=== PATIENT | male | born 1990 | race Caucasian/White ===

== ENCOUNTER 2017-08-09 05:29 | Inpatient (IN) | payer MEDICAID ==
[~2017-08-09] VITALS: Ht 167.6 cm; Wt 76.0 kg
[~2017-08-09 05:29] MED LIST: BENZ2TAB10 PO; RISP2TAB76 PO
[2017-08-09] MEDS ORDERED: QUEtiapine FUMARATE 100 MG TABLET PO PRN (07:45)
[2017-08-09 09:37] VITALS: BP 123/76
[2017-08-09] MEDS: LORazepam 1 MG TABLET PO PRN ×2 (14:00→16:41)
[2017-08-09] MEDS ORDERED: ALBUTEROL SULFATE HFA 90 MCG/PUFF 8 GM INHALER IH PRN (18:00)
[2017-08-09] MEDS ORDERED: BACITRACIN 28.4 GM OINTMENT TP PRN (18:00)
[2017-08-09] MEDS ORDERED: PETROLATUM,WHITE 71 GM JELLY TP PRN (18:00)
[2017-08-09] MEDS ORDERED: CloNIDine HCL 0.1 MG TABLET PO PRN (18:00)
[2017-08-09] MEDS ORDERED: MAGNESIUM HYDROXIDE SUSPENSION 30 ML UDCUP PO PRN (18:00)
[2017-08-09] MEDS ORDERED: MAG HYDROX/AL HYDROX/SIMETH ES 30 ML SUSPENSION UDCUP PO PRN (18:00)
[2017-08-09] MEDS ORDERED: LOPERAMIDE HCL 2 MG CAPSULE PO PRN (18:00)
[2017-08-09] MEDS ORDERED: ONDANSETRON HCL 4 MG TABLET PO PRN (18:00)
[2017-08-09] MEDS ORDERED: IBUPROFEN 600 MG TABLET PO PRN (18:00)
[2017-08-09] MEDS ORDERED: BENZOCAINE/MENTHOL LOZENGE MM PRN (18:00)
[2017-08-09] MEDS ORDERED: ACETAMINOPHEN 325 MG TABLET PO PRN (18:00)
[2017-08-09 18:45] VITALS: BP 130/99
[2017-08-09] MEDS: ARIPiprazole 10 MG TABLET PO SCH (20:58)
[2017-08-09] MEDS: CITALOPRAM HYDROBROMIDE 20 MG TABLET PO SCH (20:58)
[2017-08-09] MEDS ORDERED: BENZTROPINE MESYLATE 2 MG TABLET PO SCH (21:00)
[2017-08-09] MEDS ORDERED: RisperiDONE 2 MG TABLET PO SCH (21:00)
[2017-08-10 01:36] VITALS: BP 118/63
[2017-08-10 08:06] LABS: BASOPHILS # (AUTO) 0.04 K/uL (0.00-0.20); BASOPHILS % (AUTO) 0.3 % (0.0-2.0); EOSINOPHILS % (AUTO) 2.09 % (1.0-6.0); HEMATOCRIT 51.3 % (41-53); HEMOGLOBIN 17.7 g/dL (13.5-17.5); LYMPHOCYTES % (AUTO) 13.6 % (22.0-44.0); MEAN CORPUSCULAR HEMOGLOBIN 30.9 pg (26.0-34.0); MEAN CORPUSCULAR HGB CONC 34.4 G/dL (31.0-37.0); MEAN CORPUSCULAR VOLUME 90 fL (80-100); MONOCYTES % (AUTO) 6.7 % (2.0-9.0); NEUTROPHILS # (AUTO) 11.2 K/uL (1.8-7.7); NEUTROPHILS % (AUTO) 77.4 % (40.0-70.0); PLATELET COUNT (AUTO) 247 K/uL (150-450); RED BLOOD CELL COUNT(AUTO) 5.71 MIL/uL (4.50-5.90); RED CELL DISTRIBUTION WIDTH 12.9 % (11.5-14.5); WHITE BLOOD COUNT (AUTO) 14.5 K/uL (4.5-11.0)
[2017-08-10 08:38] VITALS: BP 127/75
[2017-08-10 08:58] LABS: ALANINE AMINOTRANSFERASE 29 U/L (12-78); ALBUMIN 4.2 g/dL (3.4-5.0); ANION GAP 13 mmol/L (8-16); ASPARTATE AMINOTRANSFERASE 20 U/L (15-37); BILIRUBIN,TOTAL 0.7 mg/dL (0.1-1.0); CALCIUM, TOTAL 9.3 mg/dL (8.8-10.5); CARBON DIOXIDE 25 mmol/L (22-29); CHLORIDE 105 mmol/L (98-107); CHOL/HDL RATIO 4.1 (4.2-7.3); CREATININE 0.92 mg/dL (0.60-1.30); GLOMERULAR FILTR. RATE CALC > 60 mL/min (>60); POTASSIUM 3.6 mmol/L (3.5-5.1); SODIUM SERUM 143 mmol/L (136-145); THYROID STIMULATING HORMONE 0.74 uIU/mL (0.36-3.74); TOTAL PROTEIN, SERUM 7.7 g/dL (6.4-8.2); UREA NITROGEN, BLOOD 16 mg/dL (7-18)
[2017-08-10 16:48] VITALS: BP 115/86
[2017-08-10] MEDS: LORazepam 1 MG TABLET PO PRN (17:12)
[2017-08-10] MEDS: CITALOPRAM HYDROBROMIDE 20 MG TABLET PO SCH (20:27)
[2017-08-10] MEDS: ARIPiprazole 10 MG TABLET PO SCH (20:27)
[2017-08-11 06:30] VITALS: BP 128/75
[2017-08-11] MEDS: LORazepam 1 MG TABLET PO PRN (08:35)
[2017-08-11 09:51] VITALS: BP 130/43
[2017-08-11 16:42] VITALS: BP 125/88
[2017-08-11] MEDS: ARIPiprazole 10 MG TABLET PO SCH (20:20)
[2017-08-11] MEDS: CITALOPRAM HYDROBROMIDE 20 MG TABLET PO SCH (20:20)
[2017-08-12 05:27] VITALS: BP 120/69
[2017-08-12 09:15] VITALS: BP 104/68
[2017-08-12] MEDS: LORazepam 1 MG TABLET PO PRN ×2 (11:12→20:35)
[2017-08-12 16:49] VITALS: BP 133/74
[2017-08-12] MEDS: CITALOPRAM HYDROBROMIDE 20 MG TABLET PO SCH (20:35)
[2017-08-12] MEDS: ARIPiprazole 10 MG TABLET PO SCH (21:23)
[2017-08-13 06:24] VITALS: BP 105/75
[2017-08-13 06:54] LABS: BASOPHILS % (AUTO) 0.6 % (0.0-2.0); EOSINOPHILS % (AUTO) 6.1 % (1.0-6.0); HEMATOCRIT 46.7 % (41-53); HEMOGLOBIN 16.1 g/dL (13.5-17.5); LYMPHOCYTES # (AUTO) 2.2 K/uL (1.0-4.8); LYMPHOCYTES % (AUTO) 24.4 % (22.0-44.0); MEAN CORPUSCULAR HGB CONC 34.5 G/dL (31.0-37.0); MEAN CORPUSCULAR VOLUME 90 fL (80-100); MONOCYTES # (AUTO) 0.7 K/uL (0.1-1.0); MONOCYTES % (AUTO) 7.9 % (2.0-9.0); NEUTROPHILS # (AUTO) 5.5 K/uL (1.8-7.7); PLATELET COUNT (AUTO) 234 K/uL (150-450); RED CELL DISTRIBUTION WIDTH 12.5 % (11.5-14.5)
[2017-08-13 07:22] LABS: ANION GAP 9 mmol/L (8-16); CALCIUM, TOTAL 8.6 mg/dL (8.8-10.5); CARBON DIOXIDE 26 mmol/L (22-29); CHLORIDE 106 mmol/L (98-107); CREATININE 0.84 mg/dL (0.60-1.30); GLOMERULAR FILTR. RATE CALC > 60 mL/min (>60); PHOSPHORUS 3.6 mg/dL (2.5-4.9); POTASSIUM 4.3 mmol/L (3.5-5.1); SODIUM SERUM 141 mmol/L (136-145); UREA NITROGEN, BLOOD 13 mg/dL (7-18)
[2017-08-13] MEDS: LORazepam 1 MG TABLET PO PRN ×2 (09:53→17:20)
[2017-08-13 10:02] VITALS: BP 116/60
[2017-08-13 16:41] VITALS: BP 135/78
[2017-08-13] MEDS: ARIPiprazole 10 MG TABLET PO SCH (20:13)
[2017-08-13] MEDS: CITALOPRAM HYDROBROMIDE 20 MG TABLET PO SCH (20:13)
[2017-08-14 06:57] VITALS: BP 128/79
[2017-08-14] MEDS: LORazepam 1 MG TABLET PO PRN (10:10)
[2017-08-14] MEDS ORDERED: ARIP15TA2 PO (12:56)
[2017-08-14] MEDS ORDERED: CITA20TA17 PO (12:56)
== END 2017-08-14 15:00 | disposition home or self-care (01) | DRG 750 ==
LOC: BV PSY EVL 08:52 → AHU 09:20 → B2S 17:36
DX: F25.1 Schizoaffective disorder, depressive type (principal); R45.851 Suicidal ideations; F15.10 Other stimulant abuse, uncomplicated; F17.210 Nicotine dependence, cigarettes, uncomplicated; G47.00 Insomnia, unspecified; K59.00 Constipation, unspecified; Z79.899 Other long term (current) drug therapy; Z88.0 Allergy status to penicillin; Z72.89 Other problems related to lifestyle
CPT/HCPCS: 83735; 84100; 84436; 84439; 84443; 99285

== ENCOUNTER 2017-09-05 22:12 | Inpatient (IN) | payer MEDICAID, OTHER ==
[~2017-09-05] VITALS: Ht 160 cm; Wt 82.1 kg
[~2017-09-05 22:12] MED LIST changes: +ARIP15TA2 PO; -BENZ2TAB10 PO; +CITA20TA17 PO; -RISP2TAB76 PO
[2017-09-05] MEDS ORDERED: HALOPERIDOL 5 MG TABLET PO PRN (22:45)
[2017-09-05 22:57] VITALS: BP 132/78
[2017-09-06 00:50] LABS: BASOPHILS % (AUTO) 0.3 % (0.0-2.0); EOSINOPHILS % (AUTO) 1.7 % (1.0-6.0); HEMATOCRIT 52.3 % (41-53); HEMOGLOBIN 17.7 g/dL (13.5-17.5); LYMPHOCYTES # (AUTO) 2.2 K/uL (1.0-4.8); MEAN CORPUSCULAR HEMOGLOBIN 30.5 pg (26.0-34.0); MEAN CORPUSCULAR HGB CONC 33.9 G/dL (31.0-37.0); MEAN CORPUSCULAR VOLUME 90 fL (80-100); MONOCYTES # (AUTO) 1.2 K/uL (0.1-1.0); NEUTROPHILS # (AUTO) 13.1 K/uL (1.8-7.7); PLATELET COUNT (AUTO) 280 K/uL (150-450); RED BLOOD CELL COUNT(AUTO) 5.81 MIL/uL (4.50-5.90); RED CELL DISTRIBUTION WIDTH 13.4 % (11.5-14.5); WHITE BLOOD COUNT (AUTO) 16.8 K/uL (4.5-11.0)
[2017-09-06 00:56] LABS: ANION GAP 10 mmol/L (8-16); CALCIUM, TOTAL 9.2 mg/dL (8.8-10.5); CARBON DIOXIDE 25 mmol/L (22-29); CHLORIDE 103 mmol/L (98-107); CREATININE 0.92 mg/dL (0.60-1.30); GLOMERULAR FILTR. RATE CALC > 60 mL/min (>60); POTASSIUM 3.7 mmol/L (3.5-5.1); SODIUM SERUM 138 mmol/L (136-145); UREA NITROGEN, BLOOD 15 mg/dL (7-18)
[2017-09-06 01:02] LABS: ALANINE AMINOTRANSFERASE 39 U/L (12-78); ALBUMIN 4.5 g/dL (3.4-5.0); ASPARTATE AMINOTRANSFERASE 19 U/L (15-37); BILIRUBIN,TOTAL 0.7 mg/dL (0.1-1.0)
[2017-09-06] MEDS ORDERED: LORazepam 2 MG TABLET PO ONE (01:30)
[2017-09-06] MEDS ORDERED: INFLUENZA VIRUS VACCINE QVS 2017-18 (3YR+)/PF 60 MCG/0.5 ML SYRINGE IM ONE (04:15)
[2017-09-06 06:29] LABS: BASOPHILS % (AUTO) 0.3 % (0.0-2.0); EOSINOPHILS % (AUTO) 2.7 % (1.0-6.0); HEMATOCRIT 47.8 % (41-53); HEMOGLOBIN 16.6 g/dL (13.5-17.5); LYMPHOCYTES # (AUTO) 2.5 K/uL (1.0-4.8); LYMPHOCYTES % (AUTO) 19.3 % (22.0-44.0); MEAN CORPUSCULAR HEMOGLOBIN 31.4 pg (26.0-34.0); MEAN CORPUSCULAR HGB CONC 34.7 G/dL (31.0-37.0); MEAN CORPUSCULAR VOLUME 90 fL (80-100); MONOCYTES # (AUTO) 1.1 K/uL (0.1-1.0); MONOCYTES % (AUTO) 8.4 % (2.0-9.0); NEUTROPHILS % (AUTO) 69.3 % (40.0-70.0); PLATELET COUNT (AUTO) 246 K/uL (150-450); RED BLOOD CELL COUNT(AUTO) 5.29 MIL/uL (4.50-5.90); RED CELL DISTRIBUTION WIDTH 13.5 % (11.5-14.5)
[2017-09-06 06:38] LABS: ALANINE AMINOTRANSFERASE 32 U/L (12-78); ALBUMIN 3.8 g/dL (3.4-5.0); ANION GAP 10 mmol/L (8-16); ASPARTATE AMINOTRANSFERASE 12 U/L (15-37); BILIRUBIN,TOTAL 0.8 mg/dL (0.1-1.0); CALCIUM, TOTAL 8.6 mg/dL (8.8-10.5); CARBON DIOXIDE 26 mmol/L (22-29); CHLORIDE 105 mmol/L (98-107); CHOL/HDL RATIO 4.2 (4.2-7.3); CREATININE 0.81 mg/dL (0.60-1.30); GLOMERULAR FILTR. RATE CALC > 60 mL/min (>60); POTASSIUM 3.6 mmol/L (3.5-5.1); SODIUM SERUM 141 mmol/L (136-145); THYROID STIMULATING HORMONE 1.34 uIU/mL (0.36-3.74); UREA NITROGEN, BLOOD 15 mg/dL (7-18)
[2017-09-06 09:38] VITALS: BP 127/72
[2017-09-06 09:44] VITALS: BP 127/72
[2017-09-06 16:59] VITALS: BP 124/67
[2017-09-06 17:00] VITALS: BP 124/67
[2017-09-06] MEDS ORDERED: ALBUTEROL SULFATE HFA 90 MCG/PUFF 8 GM INHALER IH PRN (18:45)
[2017-09-06] MEDS ORDERED: BENZOCAINE/MENTHOL LOZENGE [8 LOZENGES/PACKET] MM PRN (18:45)
[2017-09-06] MEDS ORDERED: LOPERAMIDE HCL 2 MG CAPSULE PO PRN (18:45)
[2017-09-06] MEDS ORDERED: MAGNESIUM HYDROXIDE SUSPENSION 30 ML UDCUP PO PRN (18:45)
[2017-09-06] MEDS ORDERED: IBUPROFEN 600 MG TABLET PO PRN (18:45)
[2017-09-06] MEDS ORDERED: ONDANSETRON HCL 4 MG TABLET PO PRN (18:45)
[2017-09-06] MEDS ORDERED: ACETAMINOPHEN 325 MG TABLET PO PRN (18:45)
[2017-09-06] MEDS ORDERED: BACITRACIN 28.4 GM OINTMENT TP PRN (18:45)
[2017-09-06] MEDS ORDERED: MAG HYDROX/AL HYDROX/SIMETH ES 30 ML SUSPENSION UDCUP PO PRN (18:45)
[2017-09-06] MEDS ORDERED: CloNIDine HCL 0.1 MG TABLET PO PRN (18:45)
[2017-09-06] MEDS ORDERED: PETROLATUM,WHITE 71 GM JELLY TP PRN (18:45)
[2017-09-06 19:34] VITALS: BP 135/64
[2017-09-06] MEDS: ZOLPIDEM TARTRATE 10 MG TABLET PO PRN (20:15)
[2017-09-06] MEDS: LORazepam 2 MG TABLET PO PRN (20:15)
[2017-09-06] MEDS: ARIPiprazole 10 MG TABLET PO SCH (21:00)
[2017-09-06] MEDS: CITALOPRAM HYDROBROMIDE 20 MG TABLET PO SCH (21:00)
[2017-09-07 00:01] VITALS: BP 125/76
[2017-09-07 09:00] VITALS: BP 112/76
[2017-09-07] MEDS: NICOTINE 21 MG/24 HOUR PATCH TD SCH (09:25)
[2017-09-07] MEDS: LORazepam 2 MG TABLET PO PRN (15:03)
[2017-09-07 16:20] VITALS: BP 132/76
[2017-09-07] MEDS: ZOLPIDEM TARTRATE 10 MG TABLET PO PRN (20:28)
[2017-09-07] MEDS: ARIPiprazole 10 MG TABLET PO SCH (20:28)
[2017-09-07] MEDS: CITALOPRAM HYDROBROMIDE 20 MG TABLET PO SCH (20:28)
[2017-09-08 01:22] VITALS: BP 123/61
[2017-09-08] MEDS: NICOTINE 21 MG/24 HOUR PATCH TD SCH (09:03)
[2017-09-08 09:06] VITALS: BP 141/91
[2017-09-08] MEDS: LORazepam 2 MG TABLET PO PRN ×2 (09:13→20:07)
[2017-09-08 16:06] VITALS: BP 136/80
[2017-09-08] MEDS: ARIPiprazole 10 MG TABLET PO SCH (20:07)
[2017-09-08] MEDS: CITALOPRAM HYDROBROMIDE 20 MG TABLET PO SCH (20:07)
[2017-09-09 00:01] VITALS: BP 123/73
[2017-09-09 07:24] LABS: BASOPHILS # (AUTO) 0.05 K/uL (0.00-0.20); BASOPHILS % (AUTO) 0.6 % (0.0-2.0); EOSINOPHILS # (AUTO) 0.48 K/uL (0.00-0.70); EOSINOPHILS % (AUTO) 5.34 % (1.0-6.0); HEMATOCRIT 48.5 % (41-53); HEMOGLOBIN 16.4 g/dL (13.5-17.5); LYMPHOCYTES # (AUTO) 2.1 K/uL (1.0-4.8); LYMPHOCYTES % (AUTO) 22.9 % (22.0-44.0); MEAN CORPUSCULAR HEMOGLOBIN 30.8 pg (26.0-34.0); MEAN CORPUSCULAR HGB CONC 33.7 G/dL (31.0-37.0); MEAN CORPUSCULAR VOLUME 91 fL (80-100); MONOCYTES # (AUTO) 0.8 K/uL (0.1-1.0); MONOCYTES % (AUTO) 8.8 % (2.0-9.0); NEUTROPHILS # (AUTO) 5.7 K/uL (1.8-7.7); NEUTROPHILS % (AUTO) 62.4 % (40.0-70.0); PLATELET COUNT (AUTO) 212 K/uL (150-450); RED BLOOD CELL COUNT(AUTO) 5.31 MIL/uL (4.50-5.90); RED CELL DISTRIBUTION WIDTH 12.7 % (11.5-14.5); WHITE BLOOD COUNT (AUTO) 9.1 K/uL (4.5-11.0)
[2017-09-09 08:35] VITALS: BP 146/66
[2017-09-09] MEDS: LORazepam 2 MG TABLET PO PRN (08:56)
[2017-09-09] MEDS: NICOTINE 21 MG/24 HOUR PATCH TD SCH (08:56)
[2017-12-12] MEDS ORDERED: ARIP10TA8 PO (14:20)
[2017-12-15] MEDS ORDERED: VITAD1000 PO (09:54)
[2017-12-15] MEDS ORDERED: ATEN25TA PO (09:54)
[2017-12-17] MEDS ORDERED: ARIP5TAB8 PO (14:04)
== END 2017-09-09 13:10 | disposition home or self-care (01) | DRG 750 ==
LOC: EMS 23:41 → AHU 09-06 02:26 → B2S 09-06 21:58
DX: F25.1 Schizoaffective disorder, depressive type (principal); R45.851 Suicidal ideations; F15.10 Other stimulant abuse, uncomplicated; D72.829 Elevated white blood cell count, unspecified; F41.9 Anxiety disorder, unspecified; G47.00 Insomnia, unspecified; G80.9 Cerebral palsy, unspecified; K59.00 Constipation, unspecified; F17.210 Nicotine dependence, cigarettes, uncomplicated; Z79.899 Other long term (current) drug therapy; Z88.0 Allergy status to penicillin; Z71.6 Tobacco abuse counseling
CPT/HCPCS: 82306; 83036; 84439; 84443; 87081; 99285; G0480

== ENCOUNTER 2017-12-26 03:07 | Emergency (ER) | payer MEDICAID, OTHER ==
[~2017-12-26] VITALS: Ht 160 cm; Wt 67.3 kg
[~2017-12-26 03:07] MED LIST changes: -ARIP15TA2 PO; +ARIP5TAB8 PO; +ATEN25TA PO; +VITAD1000 PO
[2017-12-26 04:14] LABS: BASOPHILS % (AUTO) 0.7 % (0.0-2.0); EOSINOPHILS % (AUTO) 0.1 % (1.0-6.0); HEMOGLOBIN 17.4 g/dL (13.5-17.5); LYMPHOCYTES # (AUTO) 1.9 K/uL (1.0-4.8); LYMPHOCYTES % (AUTO) 8.6 % (22.0-44.0); MEAN CORPUSCULAR HGB CONC 34.1 G/dL (31.0-37.0); MEAN CORPUSCULAR VOLUME 88 fL (80-100); MONOCYTES # (AUTO) 1.1 K/uL (0.1-1.0); MONOCYTES % (AUTO) 4.8 % (2.0-9.0); NEUTROPHILS # (AUTO) 18.8 K/uL (1.8-7.7); PLATELET COUNT (AUTO) 311 K/uL (150-450)
[2017-12-26] MEDS ORDERED: LORazepam 1 MG TABLET PO ONE (04:15)
[2017-12-26] MEDS ORDERED: HALOPERIDOL 5 MG TABLET PO ONE (04:15)
[2017-12-26] MEDS ORDERED: DiphenhydrAMINE HCL 25 MG/10 ML ELIXIR UDCUP PO ONE (04:15)
[2017-12-26 04:16] LABS: NEUTROPHILS % (AUTO) 85.8 % (40.0-70.0)
[2017-12-26 04:26] LABS: ANION GAP 13 mmol/L (8-16); CALCIUM, TOTAL 9.3 mg/dL (8.8-10.5); CARBON DIOXIDE 25 mmol/L (22-29); CHLORIDE 105 mmol/L (98-107); CREATININE 1.01 mg/dL (0.60-1.30); GLOMERULAR FILTR. RATE CALC > 60 mL/min (>60); GLUCOSE,RANDOM 141 mg/dL (70-110); POTASSIUM 3.8 mmol/L (3.5-5.1); SODIUM SERUM 143 mmol/L (136-145); UREA NITROGEN, BLOOD 12 mg/dL (7-18)
[2017-12-26 04:32] LABS: ALANINE AMINOTRANSFERASE 35 U/L (12-78); ALBUMIN 4.6 g/dL (3.4-5.0); ALKALINE PHOSPHATASE 88 U/L (46-116); ASPARTATE AMINOTRANSFERASE 16 U/L (15-37); BILIRUBIN,TOTAL 0.5 mg/dL (0.1-1.0); TOTAL PROTEIN, SERUM 8.5 g/dL (6.4-8.2)
[2017-12-26] MEDS ORDERED: SODIUM CHLORIDE 0.9% 1,000 ML IV ONE ×4 (06:00→12:00)
[2017-12-26] MEDS ORDERED: LORazepam 2 MG/ML VIAL IVP ONE ×2 (06:00→07:00)
[2017-12-26 07:03] LABS: LACTIC ACID 3.8 mmol/L (0.4-2.0)
[2017-12-26 07:51] LABS: AMPHET/METH SCREEN,URINE POSITIVE (NEGATIVE); BARBITURATE SCREEN, URINE NEGATIVE (NEGATIVE); BENZODIAZEPINES SCREEN,URINE NEGATIVE (NEGATIVE); CANNABINOID SCREEN,URINE NEGATIVE (NEGATIVE); COCAINE SCREEN,URINE NEGATIVE (NEGATIVE); METHADONE SCREEN, URINE NEGATIVE (NEGATIVE); OPIATE SCREEN,URINE NEGATIVE (NEGATIVE)
[2017-12-26 07:54] LABS: PHENCYCLIDINE SCREEN,URINE NEGATIVE (NEGATIVE)
[2017-12-26 12:07] VITALS: BP 160/80
== END 2017-12-26 13:25 | disposition home or self-care (01) ==
LOC: EMS 03:09
DX: F25.9 Schizoaffective disorder, unspecified (principal); F15.10 Other stimulant abuse, uncomplicated; F22 Delusional disorders; F17.210 Nicotine dependence, cigarettes, uncomplicated; F19.90 Other psychoactive substance use, unspecified, uncomplicated; I10 Essential (primary) hypertension; Z88.0 Allergy status to penicillin
CPT/HCPCS: 36415; 80053; 80307; 83605; 85025; 87040; 96361; 96374; 99285; G0480; J2060; J7030

== ENCOUNTER 2018-07-09 23:14 | Inpatient (IN) | payer MEDICAID, OTHER ==
[~2018-07-09] VITALS: Ht 160 cm; Wt 84.6 kg
[2018-07-10] MEDS ORDERED: TRAZ-219 PO (00:58)
[2018-07-10] MEDS ORDERED: PALI1.5T PO (00:58)
[2018-07-10 02:46] LABS: EOSINOPHILS % (AUTO) 0.8 % (1.0-6.0); HEMATOCRIT 43.9 % (41-53); LYMPHOCYTES # (AUTO) 2.1 K/uL (1.0-4.8); LYMPHOCYTES % (AUTO) 12.9 % (22.0-44.0); MEAN CORPUSCULAR HEMOGLOBIN 30.1 pg (26.0-34.0); MEAN CORPUSCULAR HGB CONC 34.2 G/dL (31.0-37.0); MEAN CORPUSCULAR VOLUME 88 fL (80-100); MONOCYTES # (AUTO) 1.3 K/uL (0.1-1.0); MONOCYTES % (AUTO) 7.7 % (2.0-9.0); NEUTROPHILS # (AUTO) 12.7 K/uL (1.8-7.7); NEUTROPHILS % (AUTO) 77.6 % (40.0-70.0); PLATELET COUNT (AUTO) 355 K/uL (150-450); RED BLOOD CELL COUNT(AUTO) 4.98 MIL/uL (4.50-5.90); RED CELL DISTRIBUTION WIDTH 13.1 % (11.5-14.5)
[2018-07-10 02:57] LABS: ANION GAP 9 mmol/L (8-16); CARBON DIOXIDE 25 mmol/L (22-29); CHLORIDE 105 mmol/L (98-107); CREATININE 0.82 mg/dL (0.60-1.30); GLOMERULAR FILTR. RATE CALC > 60 mL/min (>60); GLUCOSE,RANDOM 118 mg/dL (70-110); POTASSIUM 3.4 mmol/L (3.5-5.1); SODIUM SERUM 139 mmol/L (136-145); UREA NITROGEN, BLOOD 11 mg/dL (7-18)
[2018-07-10] MEDS ORDERED: ZOLPIDEM TARTRATE 10 MG TABLET PO PRN (03:00)
[2018-07-10] MEDS ORDERED: HALOPERIDOL 5 MG TABLET PO ONE (03:00)
[2018-07-10] MEDS ORDERED: LORazepam 2 MG TABLET PO ONE (03:00)
[2018-07-10] MEDS ORDERED: DiphenhydrAMINE HCL 25 MG CAPSULE PO ONE (03:00)
[2018-07-10] MEDS ORDERED: HALOPERIDOL 5 MG TABLET PO PRN (03:00)
[2018-07-10 03:03] LABS: ALANINE AMINOTRANSFERASE 49 U/L (12-78); ALBUMIN 3.5 g/dL (3.4-5.0); ALKALINE PHOSPHATASE 77 U/L (46-116); ASPARTATE AMINOTRANSFERASE 20 U/L (15-37); BILIRUBIN,TOTAL 0.5 mg/dL (0.1-1.0); TOTAL PROTEIN, SERUM 7.9 g/dL (6.4-8.2)
[2018-07-10] MEDS ORDERED: MUPIROCIN CALCIUM 2% 22 GM OINTMENT TP ONE (03:15)
[2018-07-10 06:53] LABS: AMPHET/METH SCREEN,URINE NEGATIVE (NEGATIVE); BARBITURATE SCREEN, URINE NEGATIVE (NEGATIVE); BENZODIAZEPINES SCREEN,URINE NEGATIVE (NEGATIVE); CANNABINOID SCREEN,URINE NEGATIVE (NEGATIVE); COCAINE SCREEN,URINE NEGATIVE (NEGATIVE); METHADONE SCREEN, URINE NEGATIVE (NEGATIVE); OPIATE SCREEN,URINE NEGATIVE (NEGATIVE)
[2018-07-10 06:55] LABS: PHENCYCLIDINE SCREEN,URINE NEGATIVE (NEGATIVE)
[2018-07-10] MEDS: LORazepam 2 MG TABLET PO PRN (09:36)
[2018-07-10 09:38] VITALS: BP 134/74
[2018-07-10] MEDS ORDERED: ACETAMINOPHEN 325 MG TABLET PO PRN (13:45)
[2018-07-10] MEDS ORDERED: MAGNESIUM HYDROXIDE SUSPENSION 30 ML UDCUP PO PRN (13:45)
[2018-07-10] MEDS ORDERED: HydrOXYzine PAMOATE 50 MG CAPSULE PO PRN (13:45)
[2018-07-10] MEDS ORDERED: TUBERCULIN, PURIFIED PROTEIN DERIVATIVE 5 TU/0.1 ML SYG ID ONE (13:45)
[2018-07-10] MEDS ORDERED: LOPERAMIDE HCL 2 MG CAPSULE PO PRN (13:45)
[2018-07-10] MEDS ORDERED: GuaiFENesin/D-METHORPHAN [SUGAR-FREE] 200-20MG/10 ML SYRUP UDCUP PO PRN (13:45)
[2018-07-10] MEDS ORDERED: OLANZapine 5 MG RAPDIS TABLET PO PRN (13:45)
[2018-07-10] MEDS ORDERED: PROMETHAZINE HCL 25 MG TABLET PO PRN (13:45)
[2018-07-10] MEDS ORDERED: ONDANSETRON HCL 4 MG TABLET PO PRN (14:15)
[2018-07-10] MEDS ORDERED: CloNIDine HCL 0.1 MG TABLET PO PRN (14:15)
[2018-07-10] MEDS ORDERED: PETROLATUM,WHITE 71 GM JELLY TP PRN (14:15)
[2018-07-10] MEDS ORDERED: NICOTINE 14 MG/24 HOUR PATCH TD PRN (14:15)
[2018-07-10] MEDS ORDERED: DOCUSATE SODIUM 100 MG CAPSULE PO PRN (14:15)
[2018-07-10] MEDS ORDERED: IBUPROFEN 400 MG TABLET PO PRN (14:15)
[2018-07-10] MEDS ORDERED: ALBUTEROL SULFATE HFA 90 MCG/PUFF 8 GM INHALER IH PRN (14:15)
[2018-07-10 20:32] VITALS: BP 118/77
[2018-07-10] MEDS: THIAMINE HCL 100 MG TABLET PO SCH (20:58)
[2018-07-10] MEDS ORDERED: OLANZapine 5 MG RAPDIS TABLET PO SCH (21:00)
[2018-07-10] MEDS: BACITRACIN 28.4 GM OINTMENT TP SCH (21:04)
[2018-07-11 07:52] LABS: BASOPHILS % (AUTO) 0.9 % (0.0-2.0); EOSINOPHILS % (AUTO) 4.6 % (1.0-6.0); HEMATOCRIT 46.7 % (41-53); HEMOGLOBIN 15.8 g/dL (13.5-17.5); LYMPHOCYTES # (AUTO) 2.1 K/uL (1.0-4.8); LYMPHOCYTES % (AUTO) 18.7 % (22.0-44.0); MEAN CORPUSCULAR HEMOGLOBIN 30.1 pg (26.0-34.0); MEAN CORPUSCULAR HGB CONC 33.9 G/dL (31.0-37.0); MEAN CORPUSCULAR VOLUME 89 fL (80-100); MONOCYTES % (AUTO) 8.6 % (2.0-9.0); NEUTROPHILS # (AUTO) 7.6 K/uL (1.8-7.7); NEUTROPHILS % (AUTO) 67.2 % (40.0-70.0); PLATELET COUNT (AUTO) 341 K/uL (150-450); RED BLOOD CELL COUNT(AUTO) 5.25 MIL/uL (4.50-5.90)
[2018-07-11 08:02] VITALS: BP 140/87
[2018-07-11 08:14] LABS: HEMOGLOBIN A1C 5.5 % (4.5-6.2)
[2018-07-11 08:21] LABS: ALANINE AMINOTRANSFERASE 47 U/L (12-78); ALBUMIN 3.3 g/dL (3.4-5.0); ALKALINE PHOSPHATASE 80 U/L (46-116); ANION GAP 9 mmol/L (8-16); ASPARTATE AMINOTRANSFERASE 22 U/L (15-37); BILIRUBIN,TOTAL 0.6 mg/dL (0.1-1.0); CALCIUM, TOTAL 8.9 mg/dL (8.8-10.5); CARBON DIOXIDE 26 mmol/L (22-29); CHLORIDE 107 mmol/L (98-107); CHOL/HDL RATIO 4.9 (4.2-7.3); CHOLESTEROL 183 mg/dL (131-200); CREATININE 0.84 mg/dL (0.60-1.30); GLOMERULAR FILTR. RATE CALC > 60 mL/min (>60); GLUCOSE,RANDOM 97 mg/dL (70-110); HDL CHOLESTEROL 37 mg/dL (40-60); LDL CHOL (CALC.) 125 mg/dL (0-130); POTASSIUM 3.7 mmol/L (3.5-5.1); SODIUM SERUM 142 mmol/L (136-145); THYROID STIMULATING HORMONE 0.83 uIU/mL (0.36-3.74); TOTAL PROTEIN, SERUM 7.9 g/dL (6.4-8.2); TRIGLYCERIDES 103 mg/dL (15-150); UREA NITROGEN, BLOOD 8 mg/dL (7-18)
[2018-07-11] MEDS: THIAMINE HCL 100 MG TABLET PO SCH (09:30)
[2018-07-11] MEDS: FOLIC ACID 1 MG TABLET PO SCH (09:53)
[2018-07-11] MEDS: LEVOFLOXACIN 500 MG TABLET PO SCH (09:53)
[2018-07-11] MEDS: FLUoxetine HCL 20 MG CAPSULE PO SCH (09:54)
[2018-07-11] MEDS: NALTREXONE HCL 50 MG TABLET PO SCH (09:54)
[2018-07-11] MEDS: MULTIVITAMINS WITH MINERALS, THERAPEUTIC TABLET PO SCH (09:55)
[2018-07-11] MEDS: BACITRACIN 28.4 GM OINTMENT TP SCH (09:55)
[2018-07-11 18:28] VITALS: BP 147/87
[2018-07-11] MEDS ORDERED: OLANZapine 10 MG RAPDIS TABLET PO SCH (21:00)
[2018-07-12 09:23] VITALS: BP 136/98
[2018-07-12] MEDS: LEVOFLOXACIN 500 MG TABLET PO SCH (09:59)
[2018-07-12] MEDS: MULTIVITAMINS WITH MINERALS, THERAPEUTIC TABLET PO SCH (09:59)
[2018-07-12] MEDS: FOLIC ACID 1 MG TABLET PO SCH (09:59)
[2018-07-12] MEDS: NALTREXONE HCL 50 MG TABLET PO SCH (09:59)
[2018-07-12] MEDS: FLUoxetine HCL 20 MG CAPSULE PO SCH (09:59)
[2018-07-12] MEDS: THIAMINE HCL 100 MG TABLET PO SCH ×2 (09:59→16:30)
[2018-07-12] MEDS: BACITRACIN 28.4 GM OINTMENT TP SCH ×2 (10:46→16:32)
[2018-07-12 16:50] VITALS: BP 137/68
[2018-07-13 08:30] VITALS: BP 138/62
[2018-07-13] MEDS: NALTREXONE HCL 50 MG TABLET PO SCH (10:09)
[2018-07-13] MEDS: FLUoxetine HCL 20 MG CAPSULE PO SCH (10:09)
[2018-07-13] MEDS: FOLIC ACID 1 MG TABLET PO SCH (10:09)
[2018-07-13] MEDS: LEVOFLOXACIN 500 MG TABLET PO SCH (10:09)
[2018-07-13] MEDS: ARIPiprazole 15 MG TABLET PO SCH (10:09)
[2018-07-13] MEDS: THIAMINE HCL 100 MG TABLET PO SCH ×2 (10:09→16:36)
[2018-07-13] MEDS: MULTIVITAMINS WITH MINERALS, THERAPEUTIC TABLET PO SCH (10:09)
[2018-07-13] MEDS: BACITRACIN 28.4 GM OINTMENT TP SCH ×2 (10:11→16:37)
[2018-07-13 20:50] VITALS: BP 145/77
[2018-07-14 08:30] VITALS: BP 143/71
[2018-07-14] MEDS: BACITRACIN 28.4 GM OINTMENT TP SCH ×2 (09:00→17:25)
[2018-07-14] MEDS: ARIPiprazole 15 MG TABLET PO SCH (09:55)
[2018-07-14] MEDS: THIAMINE HCL 100 MG TABLET PO SCH ×2 (09:55→17:24)
[2018-07-14] MEDS: LEVOFLOXACIN 500 MG TABLET PO SCH (09:56)
[2018-07-14] MEDS: MULTIVITAMINS WITH MINERALS, THERAPEUTIC TABLET PO SCH (09:56)
[2018-07-14] MEDS: FLUoxetine HCL 20 MG CAPSULE PO SCH (09:56)
[2018-07-14] MEDS: NALTREXONE HCL 50 MG TABLET PO SCH (09:56)
[2018-07-14] MEDS: FOLIC ACID 1 MG TABLET PO SCH (09:57)
[2018-07-14 18:59] VITALS: BP 130/74
[2018-07-15 08:04] VITALS: BP 133/74
[2018-07-15] MEDS: MULTIVITAMINS WITH MINERALS, THERAPEUTIC TABLET PO SCH (09:24)
[2018-07-15] MEDS: THIAMINE HCL 100 MG TABLET PO SCH ×2 (09:24→17:10)
[2018-07-15] MEDS: ARIPiprazole 15 MG TABLET PO SCH (09:24)
[2018-07-15] MEDS: LEVOFLOXACIN 500 MG TABLET PO SCH (09:24)
[2018-07-15] MEDS: FOLIC ACID 1 MG TABLET PO SCH (09:24)
[2018-07-15] MEDS: NALTREXONE HCL 50 MG TABLET PO SCH (09:24)
[2018-07-15] MEDS: FLUoxetine HCL 20 MG CAPSULE PO SCH (09:24)
[2018-07-15] MEDS: BACITRACIN 28.4 GM OINTMENT TP SCH ×2 (09:25→17:10)
[2018-07-15 17:18] VITALS: BP 120/60
[2018-07-16 08:05] VITALS: BP 100/62
[2018-07-16] MEDS: FLUoxetine HCL 20 MG CAPSULE PO SCH (09:19)
[2018-07-16] MEDS: LEVOFLOXACIN 500 MG TABLET PO SCH (09:19)
[2018-07-16] MEDS: ARIPiprazole 15 MG TABLET PO SCH (09:19)
[2018-07-16] MEDS: BACITRACIN 28.4 GM OINTMENT TP SCH ×2 (09:19→16:57)
[2018-07-16] MEDS: MULTIVITAMINS WITH MINERALS, THERAPEUTIC TABLET PO SCH (09:19)
[2018-07-16] MEDS: NALTREXONE HCL 50 MG TABLET PO SCH (09:19)
[2018-07-16] MEDS: THIAMINE HCL 100 MG TABLET PO SCH ×2 (09:19→16:57)
[2018-07-16] MEDS: FOLIC ACID 1 MG TABLET PO SCH (09:19)
[2018-07-16] MEDS: LORazepam 2 MG TABLET PO PRN ×2 (12:36→21:00)
[2018-07-16 17:49] VITALS: BP 124/74
[2018-07-17 02:40] VITALS: BP 138/92
[2018-07-17] MEDS: MAG HYDROX/AL HYDROX/SIMETH ES 30 ML SUSPENSION UDCUP PO PRN ×2 (02:47→21:38)
[2018-07-17 11:50] VITALS: BP 102/65
[2018-07-17] MEDS: FOLIC ACID 1 MG TABLET PO SCH (12:02)
[2018-07-17] MEDS: FLUoxetine HCL 20 MG CAPSULE PO SCH (12:02)
[2018-07-17] MEDS: ARIPiprazole 15 MG TABLET PO SCH (12:03)
[2018-07-17] MEDS: NALTREXONE HCL 50 MG TABLET PO SCH (12:03)
[2018-07-17] MEDS: LEVOFLOXACIN 500 MG TABLET PO SCH (12:03)
[2018-07-17] MEDS: THIAMINE HCL 100 MG TABLET PO SCH ×2 (12:04→17:11)
[2018-07-17] MEDS: MULTIVITAMINS WITH MINERALS, THERAPEUTIC TABLET PO SCH (12:05)
[2018-07-17] MEDS: BACITRACIN 28.4 GM OINTMENT TP SCH ×2 (12:06→17:12)
[2018-07-17 20:35] VITALS: BP 121/70
[2018-07-17] MEDS: LORazepam 2 MG TABLET PO PRN (21:38)
[2018-07-18] MEDS: FOLIC ACID 1 MG TABLET PO SCH (09:01)
[2018-07-18] MEDS: BACITRACIN 28.4 GM OINTMENT TP SCH (09:01)
[2018-07-18] MEDS: ARIPiprazole 15 MG TABLET PO SCH (09:01)
[2018-07-18] MEDS: FLUoxetine HCL 20 MG CAPSULE PO SCH (09:01)
[2018-07-18] MEDS: LEVOFLOXACIN 500 MG TABLET PO SCH (09:01)
[2018-07-18] MEDS: MULTIVITAMINS WITH MINERALS, THERAPEUTIC TABLET PO SCH (09:01)
[2018-07-18] MEDS: NALTREXONE HCL 50 MG TABLET PO SCH (09:01)
[2018-07-18] MEDS: THIAMINE HCL 100 MG TABLET PO SCH (09:01)
[2018-07-18 10:17] VITALS: BP 102/82
[2018-07-18] MEDS ORDERED: ARIP15TA2 PO (11:53)
[2018-07-18] MEDS ORDERED: FLUO-191 PO (11:53)
[2018-07-18] MEDS ORDERED: NALT50TA PO (11:53)
[2018-07-18] MEDS ORDERED: LEVO500 PO (12:19)
== END 2018-07-18 15:31 | disposition home or self-care (01) | DRG 750 ==
LOC: EMS 23:14 → AHU 07-10 09:21 → 3EI 07-11 17:43
PROVIDERS: ADMIT Psychiatry & Neurology Psychiatry; ATTEND Psychiatry & Neurology Psychiatry
DX: F25.9 Schizoaffective disorder, unspecified (principal); Z91.19 Patient's noncompliance with other medical treatment and regimen; R45.851 Suicidal ideations; Z88.0 Allergy status to penicillin; L40.9 Psoriasis, unspecified; F17.200 Nicotine dependence, unspecified, uncomplicated; E87.6 Hypokalemia; Z68.28 Body mass index [BMI] 28.0-28.9, adult; F32.9 Major depressive disorder, single episode, unspecified; R00.0 Tachycardia, unspecified; D72.829 Elevated white blood cell count, unspecified; Z71.6 Tobacco abuse counseling; Z71.51 Drug abuse counseling and surveillance of drug abuser; F19.10 Other psychoactive substance abuse, uncomplicated
CPT/HCPCS: 83036; 84443; 87081; 99285; G0480

== ENCOUNTER 2021-01-17 02:08 | Inpatient (IN) | payer MEDICAID, OTHER ==
[~2021-01-17] VITALS: Ht 160 cm; Wt 534.8 kg
[~2021-01-17 02:08] MED LIST changes: +ARIP15TA2 PO; -ARIP5TAB8 PO; -ATEN25TA PO; -CITA20TA17 PO; +FLUO-191 PO; +LEVO-72 PO; +NALT50TA PO; -VITAD1000 PO
[2021-01-17] MEDS ORDERED: BUPR-93 PO (02:34)
[2021-01-17 02:45] LABS: BASOPHILS % (AUTO) 0.8 % (0.0-2.0); EOSINOPHILS % (AUTO) 0.3 % (1.0-6.0); HEMATOCRIT 47.8 % (41-53); HEMOGLOBIN 16.2 g/dL (13.5-17.5); LYMPHOCYTES # (AUTO) 2.6 K/uL (1.0-4.8); LYMPHOCYTES % (AUTO) 16.3 % (22.0-44.0); MEAN CORPUSCULAR HEMOGLOBIN 30.3 pg (26.0-34.0); MEAN CORPUSCULAR HGB CONC 33.9 G/dL (31.0-37.0); MEAN CORPUSCULAR VOLUME 90 fL (80-100); MONOCYTES # (AUTO) 1.4 K/uL (0.1-1.0); MONOCYTES % (AUTO) 8.9 % (2.0-9.0); NEUTROPHILS # (AUTO) 11.7 K/uL (1.8-7.7); NEUTROPHILS % (AUTO) 73.7 % (40.0-70.0); PLATELET COUNT (AUTO) 301 K/uL (150-450); RED BLOOD CELL COUNT(AUTO) 5.35 MIL/uL (4.50-5.90); RED CELL DISTRIBUTION WIDTH 12.7 % (11.5-14.5)
[2021-01-17 02:50] LABS: COVID AG,FIA SOURCE NASOPHARYNGEAL
[2021-01-17 03:00] LABS: ANION GAP 15 mmol/L (8-16); CALCIUM, TOTAL 9.4 mg/dL (8.8-10.5); CARBON DIOXIDE 25 mmol/L (22-29); CHLORIDE 106 mmol/L (98-107); CREATININE 1.02 mg/dL (0.60-1.30); GLOMERULAR FILTR. RATE CALC > 60 mL/min (>60); GLUCOSE,RANDOM 114 mg/dL (70-110); POTASSIUM 3.6 mmol/L (3.5-5.1); SODIUM SERUM 146 mmol/L (136-145); UREA NITROGEN, BLOOD 10 mg/dL (7-18)
[2021-01-17] MEDS ORDERED: DiphenhydrAMINE HCL 25 MG CAPSULE PO ONE (03:00)
[2021-01-17] MEDS ORDERED: LORazepam 2 MG TABLET PO ONE (03:00)
[2021-01-17 03:02] LABS: AMPHET/METH SCREEN,URINE POSITIVE (NEGATIVE); BARBITURATE SCREEN, URINE NEGATIVE (NEGATIVE); BENZODIAZEPINES SCREEN,URINE NEGATIVE (NEGATIVE); CANNABINOID SCREEN,URINE NEGATIVE (NEGATIVE); COCAINE SCREEN,URINE NEGATIVE (NEGATIVE); METHADONE SCREEN, URINE NEGATIVE (NEGATIVE); OPIATE SCREEN,URINE NEGATIVE (NEGATIVE)
[2021-01-17 03:03] LABS: PHENCYCLIDINE SCREEN,URINE NEGATIVE (NEGATIVE)
[2021-01-17 03:06] LABS: ALANINE AMINOTRANSFERASE 42 U/L (12-78); ALBUMIN 4.4 g/dL (3.4-5.0); ALKALINE PHOSPHATASE 77 U/L (46-116); ASPARTATE AMINOTRANSFERASE 19 U/L (15-37); BILIRUBIN,TOTAL 0.7 mg/dL (0.1-1.0); TOTAL PROTEIN, SERUM 8.2 g/dL (6.4-8.2)
[2021-01-17] MEDS ORDERED: LORazepam 2 MG TABLET PO PRN (03:30)
[2021-01-17] MEDS ORDERED: ZOLPIDEM TARTRATE 10 MG TABLET PO PRN (03:30)
[2021-01-17] MEDS ORDERED: OLANZapine 5 MG RAPDIS TABLET PO PRN (03:30)
[2021-01-17 04:08] LABS: APPEARANCE,URINE TURBID (CLEAR); GLUCOSE, URINE (UA) NEGATIVE (NEGATIVE); KETONES,URINE TRACE mg/dL (NEGATIVE); LEUKOCYTE ESTERASE ,URINE NEGATIVE (NEGATIVE); NITRATE,URINE NEGATIVE (NEGATIVE); OCCULT BLOOD,URINE NEGATIVE (NEGATIVE); PROTEIN,URINE POS 1+ (NEGATIVE)
[2021-01-17 04:11] LABS: BILIRUBIN,URINE PRELIM. POSITIVE (NEGATIVE)
[2021-01-17 04:26] LABS: AMORPHOUS SEDIMENT,UR Many /LPF (None Seen); BACTERIA,URINE None Seen /HPF (None Seen); RBC,URINE None Seen /HPF (0-2); WBC,URINE None Seen /HPF (0-5)
[2021-01-17 04:48] VITALS: BP 138/87
[2021-01-17 09:02] VITALS: BP 119/60
[2021-01-17 13:58] VITALS: BP 121/75
[2021-01-17 16:39] VITALS: BP 130/80
[2021-01-17] MEDS ORDERED: OLANZapine 10 MG TABLET PO SCH (21:00)
[2021-01-18 08:27] VITALS: BP 106/64
[2021-01-18] MEDS: BuPROPion HCL XL 150 MG ER TABLET PO SCH (08:58)
[2021-01-18 16:00] VITALS: BP 116/75
[2021-01-18] MEDS ORDERED: TUBERCULIN, PURIFIED PROTEIN DERIVATIVE 5 TU/0.1 ML SYRINGE ID ONE (16:00)
[2021-01-18] MEDS ORDERED: ACETAMINOPHEN 325 MG TABLET PO PRN (16:00)
[2021-01-18] MEDS ORDERED: MAGNESIUM HYDROXIDE SUSPENSION 30 ML UDCUP PO PRN (16:00)
[2021-01-18] MEDS ORDERED: GuaiFENesin/D-METHORPHAN [SUGAR-FREE] 200-20MG/10 ML SYRUP UDCUP PO PRN (16:00)
[2021-01-18] MEDS ORDERED: MAG HYDROX/AL HYDROX/SIMETH ES 30 ML SUSPENSION UDCUP PO PRN (16:00)
[2021-01-18] MEDS ORDERED: LOPERAMIDE HCL 2 MG CAPSULE PO PRN (16:00)
[2021-01-18] MEDS ORDERED: HydrOXYzine PAMOATE 50 MG CAPSULE PO PRN (16:00)
[2021-01-18] MEDS ORDERED: PROMETHAZINE HCL 25 MG TABLET PO PRN (16:00)
[2021-01-18] MEDS: THIAMINE 100 MG TABLET PO SCH (16:17)
[2021-01-18] MEDS: MELATONIN 5 MG TABLET PO SCH (20:37)
[2021-01-18] MEDS ORDERED: OLANZapine 7.5 MG TABLET PO SCH (21:00)
[2021-01-19 07:00] LABS: HEMOGLOBIN A1C 5.2 % (3.8-5.6)
[2021-01-19 07:23] LABS: ALANINE AMINOTRANSFERASE 40 U/L (12-78); ALBUMIN 3.4 g/dL (3.4-5.0); ALKALINE PHOSPHATASE 63 U/L (46-116); ANION GAP 8 mmol/L (8-16); ASPARTATE AMINOTRANSFERASE 16 U/L (15-37); BILIRUBIN,TOTAL 0.4 mg/dL (0.1-1.0); CALCIUM, TOTAL 8.4 mg/dL (8.8-10.5); CARBON DIOXIDE 28 mmol/L (22-29); CHLORIDE 108 mmol/L (98-107); CHOL/HDL RATIO 3.9 (4.2-7.3); CHOLESTEROL 133 mg/dL (131-200); CREATININE 0.91 mg/dL (0.60-1.30); GLOMERULAR FILTR. RATE CALC > 60 mL/min (>60); GLUCOSE,RANDOM 104 mg/dL (70-110); HDL CHOLESTEROL 34 mg/dL (40-60); LDL CHOL (CALC.) 83 mg/dL (0-130); POTASSIUM 3.9 mmol/L (3.5-5.1); SODIUM SERUM 144 mmol/L (136-145); TOTAL PROTEIN, SERUM 6.6 g/dL (6.4-8.2); TRIGLYCERIDES 78 mg/dL (15-150); UREA NITROGEN, BLOOD 12 mg/dL (7-18)
[2021-01-19 08:15] VITALS: BP 122/76
[2021-01-19] MEDS: THIAMINE 100 MG TABLET PO SCH ×2 (08:32→16:15)
[2021-01-19] MEDS: NALTREXONE HCL 50 MG TABLET PO SCH (08:33)
[2021-01-19] MEDS: FOLIC ACID 1 MG TABLET PO SCH (08:33)
[2021-01-19] MEDS: BuPROPion HCL XL 150 MG ER TABLET PO SCH (08:33)
[2021-01-19] MEDS: OMEGA-3/DHA/EPA/FISH OIL 1,000 MG CAPSULE PO SCH (09:00)
[2021-01-19] MEDS: MULTIVITAMINS WITH MINERALS, THERAPEUTIC TABLET PO SCH (09:00)
[2021-01-19 16:30] VITALS: BP 132/69
[2021-01-19] MEDS ORDERED: BUPR-49 PO (19:07)
[2021-01-19] MEDS ORDERED: MELA5TAB3 PO (19:07)
[2021-01-19] MEDS ORDERED: NALT50TA PO (19:07)
[2021-01-19] MEDS ORDERED: OLAN7.5T9 PO (19:07)
[2021-01-19] MEDS ORDERED: OMEG-135 PO (19:07)
[2021-01-19] MEDS ORDERED: OLANZapine 10 MG TABLET PO SCH (21:00)
[2021-01-19] MEDS: MELATONIN 5 MG TABLET PO SCH (21:52)
[2021-01-20 08:00] VITALS: BP 128/66
[2021-01-20] MEDS: THIAMINE 100 MG TABLET PO SCH (08:40)
[2021-01-20] MEDS: FOLIC ACID 1 MG TABLET PO SCH (08:41)
[2021-01-20] MEDS: OMEGA-3/DHA/EPA/FISH OIL 1,000 MG CAPSULE PO SCH (08:41)
[2021-01-20] MEDS: NALTREXONE HCL 50 MG TABLET PO SCH (08:41)
[2021-01-20] MEDS: MULTIVITAMINS WITH MINERALS, THERAPEUTIC TABLET PO SCH (08:41)
[2021-01-20] MEDS: BuPROPion HCL XL 150 MG ER TABLET PO SCH (08:42)
== END 2021-01-20 10:52 | disposition home or self-care (01) | DRG 750 ==
LOC: EMS 02:12 → 3EI 03:22
PROVIDERS: ADMIT Psychiatry & Neurology Psychiatry; ATTEND Psychiatry & Neurology Psychiatry
DX: F25.9 Schizoaffective disorder, unspecified (principal); D72.829 Elevated white blood cell count, unspecified; E87.1 Hypo-osmolality and hyponatremia; F12.90 Cannabis use, unspecified, uncomplicated; F15.10 Other stimulant abuse, uncomplicated; F41.0 Panic disorder [episodic paroxysmal anxiety]; R45.851 Suicidal ideations; Z55.9 Problems related to education and literacy, unspecified; Z59.9 Problem related to housing and economic circumstances, unspecified; Z65.3 Problems related to other legal circumstances; Z87.891 Personal history of nicotine dependence; Z91.19 Patient's noncompliance with other medical treatment and regimen; Z20.822 Contact with and (suspected) exposure to COVID-19
CPT/HCPCS: 83036; 84439; 87426; 99285; A9575; G0480